=== PATIENT | male | born 1985 | race Caucasian/White ===

== ENCOUNTER 2023-12-02 22:36 | Emergency (ER) | payer OTHER, SELFPAY ==
[2023-12-02 22:41] VITALS: BP 166/92; PULSE 107; RESP 19; TEMP 36.6; O2SAT 100
[2023-12-03 01:20] LABS: Basophils Absolute Auto 0.1 K/mm3 (0.0-0.1); Basophils Percent Auto 0.6 % (0.2-1.2); Eosinophils Percent Auto 0.3 % (0-4.4); Hematocrit 46.2 % (42.0-52.0); Hemoglobin 16.9 g/dL (14.0-18.0); Immature Granulocyte Absolute 0.02 K/mm3 (0.00-0.031); Immature Granulocyte Percent A 0.2 % (0-0.5); Lymphocytes Absolute Auto 1.56 K/mm3 (0.9-3.2); Lymphocytes Percent Auto 17.5 % (18.3-44.2); Mean Corpuscular HGB Conc 36.6 g/dl (32-36); Mean Corpuscular Hemoglobin 30.5 pg (26-34); Mean Corpuscular Volume 83.2 fl (80-100); Mean Platelet Volume 9.4 fl (7.4-10.4); Monocytes Absolute Auto 0.6 K/mm3 (0.1-0.6); Monocytes Percent Auto 6.7 % (2.6-8.5); Neutrophils Absolute Auto 6.7 K/mm3 (1.3-6.7); Neutrophils Percent Auto 74.7 % (45.5-73.1); Platelet Count Result 293 k/mm3 (150-375); Red Blood Count 5.55 M/mm3 (4.6-6.20); Red Cell Distribution Width 12.8 % (11.5-14.5); White Blood Count 8.9 K/mm3 (4.5-10.0)
[2023-12-03 01:26] LABS: Appearance Urine Clear (Clear); Bacteria Urine None Seen /hpf; Bilirubin Urine Negative (Negative); Blood Urine Negative (Negative); Color Urine Yellow (Yellow); Glucose Urine UA Trace mg/dL (Negative); Ketones Urine 3+ mg/dL (Negative); Leukocyte Esterase Ur Negative LEU/UL (Negative); Nitrate Urine Negative (Negative); Non Pathogenic Casts 0-2; Protein Urine Trace mg/dL (Negative); RBC Urine 0-2 /hpf (0-2); Specific Grav Ur 1.027 (1.001-1.035); Squamous Epithelial Cell Urine None Seen /hpf (Few); WBC Urine 0-5 /hpf (0-3)
[2023-12-03 01:31] LABS: Ethanol < 10 mg/dL (<10)
[2023-12-03 01:33] LABS: Add Urine Microscopic? YES
[2023-12-03 01:34] LABS: Alanine Aminotransferase 161 U/L (6-50); Albumin Level 4.6 g/dL (3.5-5.1); Alkaline Phosphatase 63 U/L (38-126); Anion Gap 12 mmol/L (4-12); Aspartate Amino Transferase 461 U/L (17-59); Bilirubin,Total 1.7 mg/dL (0.2-1.3); Blood Urea Nitrogen 11 mg/dL (9-20); Calcium 9.5 mg/dL (8.4-10.2); Carbon Dioxide 22 mmol/L (22-30); Chloride 102 mmol/L (98-107); Estimated CRCL calculation 142 ml/min; Estimated Glomerular Filt Rate > 60; Glucose 229 mg/dL (65-110); Potassium 3.8 mmol/L (3.4-5.0); Sodium 136 mmol/L (137-145)
[2023-12-03 01:39] LABS: Amphetamine Screen Urine Negative (Negative); Barbiturate Screen Urine Negative (Negative); Benzodiazepines Screen Urine Negative (Negative); Cannabinoid Screen Urine Negative (Negative); Cocaine Screen Urine Negative (Negative); Methadone Screen Urine Negative (Negative); Opiate Screen Urine Negative (Negative); Phencyclidine Screen Urine Negative (Negative)
[2023-12-03 02:15] LABS: Thyroid Stimulating Hormone Reflex 0.617 uIU/mL (0.465-4.68)
--- NOTE | 2023-12-03 02:53 | ED.GENADULT ---
HPI - General Adult General Chief complaint: Unspecified <Frank Joshi MD - Last Filed: 12/03/23 02:58> Stated complaint: mental help <Frank Joshi MD - Last Filed: 12/03/23 02:58> Time Seen by Provider: 12/03/23 02:44 <Frank Joshi MD - Last Filed: 12/03/23 02:58> History of Present Illness HPI narrative: Patient is a 38-year-old gentleman who presents emergency department with chief complaint of having a mental breakdown patient reports that for the last week he has felt as though his body's been shutting down he has not been sleeping not been eating reports that he feels tired all the time patient denies suicidal or homicidal ideation patient reports that has individual reappear in his life and that is causative issues. <Frank Joshi MD - Last Filed: 12/03/23 02:58> Related Data Allergies/adverse reactions: Allergies Allergy/AdvReac Type Severity Reaction Status Date / Time No Known Allergies Allergy Verified 12/03/23 03:10 <Frank Joshi MD - Last Filed: 12/03/23 02:58> Review of Systems Review of Systems: A 10 system review of systems was completed on the patient and is negative except for what is stated in the HPI. Nursing and ancillary documentation was reviewed. <Frank Joshi MD - Last Filed: 12/03/23 02:58> Exam Narrative: GENERAL: Well-appearing, well-nourished, and in no acute distress. HEAD: Normocephalic, atraumatic. EYES: PERRLA and EOMI. ENT: Nares clear, no rhinorrhea or epistaxis. Mucous membranes moist. NECK: Supple. CHEST: Clear to auscultation. No respiratory distress. HEART: Regular rate and rhythm. No murmur heard. Normal peripheral pulses. ABDOMEN: Soft, nontender, nondistended, normal active bowel sounds. EXTREMITIES: Normal range of motion. No edema. SKIN: Warm, dry, no rash. NEURO: No focal deficits. Alert and oriented x3. PSYCH: Normal mood and affect. <Frank Joshi MD - Last Filed: 12/03/23 02:58> Course Reevaluation(s) Reevaluation #1: Patient was evaluated by the crisis counselor and patient did sign a safety plan and will have close outpatient follow-up. Patient was comfortable with plan with discharge and close follow-up. <Portillo Peterson MD - Last Filed: 12/03/23 19:15> Vital Signs Vital signs: Vital Signs Temperature 97.9 F 12/02/23 22:41 Pulse Rate 107 H 12/02/23 22:41 Respiratory Rate 19 12/02/23 22:41 Blood Pressure 166/92 H 12/02/23 22:41 Pulse Oximetry 100 12/02/23 22:41 Oxygen Delivery Room Air 12/02/23 22:41 Temperature 97.9 F 12/02/23 22:41 Pulse Rate 107 H 12/02/23 22:41 Respiratory Rate 19 12/02/23 22:41 Blood Pressure 166/92 H 12/02/23 22:41 Pulse Oximetry 100 12/02/23 22:41 Oxygen Delivery Room Air 12/02/23 22:41 <Frank Joshi MD - Last Filed: 12/03/23 02:58> Vital Signs Temperature 97.9 F 12/02/23 22:41 Pulse Rate 107 H 12/02/23 22:41 Respiratory Rate 19 12/02/23 22:41 Blood Pressure 166/92 H 12/02/23 22:41 Pulse Oximetry 100 12/02/23 22:41 Oxygen Delivery Room Air 12/02/23 22:41 Temperature 97.9 F 12/02/23 22:41 Pulse Rate 107 H 12/02/23 22:41 Respiratory Rate 12/02/23 22:41 Blood Pressure 166/92 H 12/02/23 22:41 Pulse Oximetry 100 12/02/23 22:41 Oxygen Delivery Room Air 12/02/23 22:41 <Portillo Peterson MD - Last Filed: 12/03/23 19:15> Medical Decision Making MDM Narrative Medical decision making narrative: Differential diagnosis includes psychiatric illness, dehydration, electrolyte abnormality, Laboratory studies were obtained on the patient showed normal CBC CMP showed a glucose of 229 the patient is known diabetic bilirubin was slightly elevated at 1.7 AST and ALT were slightly elevated as well TSH was normal ETOH is negative urinalysis showed trace ketones and trace glucose tox screen was negativ
[2023-12-03 03:38] LABS: Influenza A QL RT-PCR Negative (Negative); Influenza B QL RT-PCR Negative (Negative); RSV RNA, RT-PCR Negative (Negative); SARS-CoV-2 RNA PCR Negative (Negative)
== END 2023-12-03 09:09 | disposition home or self-care (01) ==
PROVIDERS: Emergency Provider Emergency Medicine
DX: F43.9 Reaction to severe stress, unspecified (principal); Z20.822 Contact with and (suspected) exposure to COVID-19
CPT/HCPCS: 36415; 80053; 80307; 81001; 84443; 85025; 87637; 99284